=== PATIENT | female | born 1935 | race Hispanic/Latino ===

== ENCOUNTER 2017-12-05 15:04 | Emergency (ER) | payer MEDICARE, OTHER ==
[2017-12-05 15:17] VITALS: BMI 24.2
--- NOTE | 2017-12-05 15:19 | ED PDOC ---
Arrival/HPI - General Time Seen by Provider: 12/05/17 15:12 Historian: Patient - History of Present Illness Narrative History of Present Illness (Text): 12/05/17 15:17 82yo female with no PMHx bib EMS for complaint of headache and nausea s/p trauma this afternoon. Patient states she slipped and fell down 2stairs, hitting the back of her head on the floor. Notes that her headache is localized to the area she hit. +Dizziness s/p the trauma. Denies vomiting, focal weakness , photophobia, any other somatic complaint. Past Medical History - Provider Review Nursing Documentation Reviewed: Yes Family/Social History - Physician Review Nursing Documentation Reviewed: Yes Family/Social History: Unknown Family HX Allergies/Home Meds Allergies/Adverse Reactions: Allergies No Known Allergies Allergy (Verified 12/05/17 15:19) Review of Systems - Physician Review All systems were reviewed & negative as marked: Yes - Review of Systems Constitutional: Normal Eyes: Normal ENT: Normal Respiratory: Normal Cardiovascular: Normal Gastrointestinal: Normal Genitourinary Female: Normal Musculoskeletal: Normal Skin: Normal Neurological: Headache, Dizziness. absent: Focal Weakness, Speech Changes Endocrine: Normal Hemo/Lymphatic: Normal Psychiatric: Normal Physical Exam Vital Signs Reviewed: Yes Vital Signs Temp Pulse Resp BP Pulse Ox 12/05/17 17:21 98 F 84 18 150/80 99 12/05/17 17:04 64 18 145/64 99 12/05/17 15:27 98.3 F 68 18 148/70 99 Temperature: Afebrile Blood Pressure: Normal Pulse: Regular Respiratory Rate: Normal Appearance: Positive for: Well-Appearing, Non-Toxic, Comfortable Pain Distress: None Mental Status: Positive for: Alert and Oriented X 3 - Systems Exam Head: Present: Atraumatic, Normocephalic Pupils: Present: PERRL Extroacular Muscles: Present: EOMI Conjunctiva: Present: Normal Mouth: Present: Moist Mucous Membranes Neck: Present: Normal Range of Motion Respiratory/Chest: Present: Clear to Auscultation, Good Air Exchange. No: Respiratory Distress, Accessory Muscle Use Cardiovascular: Present: Regular Rate and Rhythm, Normal S1, S2. No: Murmurs Abdomen: No: Tenderness, Distention, Peritoneal Signs Back: Present: Normal Inspection Upper Extremity: Present: Normal Inspection. No: Cyanosis, Edema Lower Extremity: Present: Normal Inspection. No: Edema Neurological: Present: GCS=15, CN II-XII Intact, Speech Normal, Motor Func Grossly Intact, Normal Sensory Function, Normal Cerebellar Funct, Norm Deep Tendon Reflexes, Memory Normal, Other (No focal neurological deficit) Skin: Present: Warm, Dry, Normal Color. No: Rashes Psychiatric: Present: Alert, Oriented x 3, Normal Insight, Normal Concentration Medical Decision Making ED Course and Treatment: 12/05/17 17:04 Pt bib EMS for headache and dizziness s/p trauma this afternoon. she was neurologically intact in ED. On re evaluation s/p medication she notes her symptoms resolved. She was ambulatory with her baseline gait in ED. Head CT - No acute finding. result was DW the pt. she was DC home with a rx of Zofran. Advised to rest and avoid any strenuous activities. Referred to her PMD. TRT ED for any new symptoms. - RAD Interpretation Radiology Orders: 12/05/17 15:19 HEAD W/O CONTRAST [CT] Stat - Medication Orders Current Medication Orders: Discontinued Medications Acetaminophen (Tylenol 325mg Tab) 650 mg PO STAT STA Stop: 12/05/17 15:20 Last Admin: 12/05/17 16:07 Dose: 650 mg MAR Pain/Vitals Document 12/05/17 16:07 LA (Rec: 12/05/17 16:07 LA [id number]) Pain Reassessment Is This A Pain ReAssessment? No Sleep Is patient sleeping during reassessment? No Presence of Pain Presence of Pain Yes Pain Scale Used Pain Scale Used Numeric Location Pain Location Body Sports Development Officer Description Intermittent Intensity 5 Metoclopramide HCl (Reglan) 10 mg PO STAT STA Stop: 12/05/17 15:21 Last Admin: 12/05/17 16:07 Dose: 10 mg Disposition/Present on Arrival - Present on Arrival Any Indicators Present on Arrival: No History of DVT/PE: No History of Uncontrolled Diabetes: No Urinary Catheter: No History of Decub. Ulcer: No History Surgical Site Infection Following: None - Disposition Have Diagnosis and Disposition been Completed?: Yes Diagnosis: Head injury Disposition: HOME/ ROUTINE Disposition Time: 16:05 Patient Plan: Discharge Condition: STABLE Discharge Instructions (ExitCare): Minor Head Injury (DC) Additional Instructions: Follow up with your doctor Return to ED for any new symptoms Prescriptions: Ondansetron ODT [Zofran ODT] 4 mg PO Q6 #8 odt Referrals: [facility] – [place] [Outside] - Follow up with primary
[2017-12-05 15:27] VITALS: RESP 18; O2SAT 99
--- NOTE | 2017-12-05 15:59 | CT ---
PROCEDURE: CT HEAD WITHOUT CONTRAST. HISTORY: headache s/p trauma COMPARISON: None available. TECHNIQUE: Axial computed tomography images were obtained through the head/brain without intravenous contrast. Radiation dose: Total exam DLP = 795 mGy-cm. This CT exam was performed using one or more of the following dose reduction techniques: Automated exposure control, adjustment of the mA and/or kV according to patient size, and/or use of iterative reconstruction technique. FINDINGS: HEMORRHAGE: No intracranial hemorrhage. BRAIN: No mass effect or edema. No atrophy or chronic microvascular ischemic changes. VENTRICLES: Unremarkable. No hydrocephalus. CALVARIUM: Unremarkable. PARANASAL SINUSES: Unremarkable as visualized. No significant inflammatory changes. MASTOID AIR CELLS: Unremarkable as visualized. No inflammatory changes. OTHER FINDINGS: None. IMPRESSION: No acute findings
[2017-12-05 18:02] VITALS: BP 150/80; PULSE 84; TEMP 98
== END 2017-12-05 18:01 | disposition home or self-care (01) ==
LOC: ED 15:04
DX: S09.90XA Unspecified injury of head, initial encounter (principal); W10.9XXA Fall (on) (from) unspecified stairs and steps, initial encounter